=== PATIENT | male | born 1945 | race Caucasian/White ===

== ENCOUNTER 2022-10-26 10:45 | Emergency (ER) | payer MEDICARE ==
[~2022-10-26] VITALS: Ht 205.7 cm; Wt 120.2 kg
[~2022-10-26 10:45] MED LIST: ENZA40TA PO; FOLI0.4T6 PO; LEVO25CA4 PO; LISI20TA24 PO; MELO7.5T12 PO; TERB250T89 PO; THIA100T75 PO
[2022-10-26 11:45] VITALS: BP 124/72
[2022-10-26] MEDS ORDERED: MOLN200C PO (14:16)
== END 2022-10-26 14:27 | disposition home or self-care (01) ==
LOC: EDH 10:45
DX: U07.1 COVID-19 (principal); M19.90 Unspecified osteoarthritis, unspecified site; I11.9 Hypertensive heart disease without heart failure; E03.9 Hypothyroidism, unspecified; Z79.1 Long term (current) use of non-steroidal anti-inflammatories (NSAID); Z79.899 Other long term (current) drug therapy; Z90.49 Acquired absence of other specified parts of digestive tract; Z95.810 Presence of automatic (implantable) cardiac defibrillator